=== PATIENT | male | born 1970 | race Asian ===

== ENCOUNTER 2020-02-07 14:40 | Inpatient (IN) | payer OTHER ==
[2020-02-07] MEDS ORDERED: SODIUM CHLORIDE 2,722 ML IV ONE (15:02)
[2020-02-07] MEDS ORDERED: ACETAMINOPHEN 1000 MG/100 ML VIAL (NON FORMULARY) IVPB ONE (15:05)
[2020-02-07] MEDS ORDERED: DEXAMETHASONE SOD PHOSPHATE 10 MG/1 ML VIAL IVPUSH ONE (15:38)
[2020-02-07 15:56] LABS: VENOUS PCO2 29.3 mmHg (38-52); VENOUS PH 7.543 (7.310-7.410)
[2020-02-07 15:57] LABS: BASO % 0.2 % (0-2.0); HEMATOCRIT 38.8 % (35.4-49); HEMOGLOBIN 13.3 GM/dL (11.7-16.9); LYMPH % 8.3 % (8-40); MCH 29.8 pg (25.7-33.7); MCHC 34.3 g/dl (32.0-35.9); MEAN CELL VOLUME 86.8 fl (80-96); MEAN PLT VOLUME 8.5 fl (7.5-11.1); MONO % 8.8 % (3.8-10.2); NEUT % 82.7 % (42.8-82.8); PLATELET COUNT 196 K/MM3 (134-434); RBC 4.47 M/mm3 (4.00-5.60); RDW 13.2 % (11.9-15.9); WHITE BLOOD COUNT 9.3 K/mm3 (4.0-10.0)
[2020-02-07] MEDS ORDERED: DEXAMETHASONE SOD PHOSPHATE 4 MG/1 ML VIAL ONE (16:08)
[2020-02-07 16:11] LABS: INR 1.2 (0.83-1.09); PROTHROMBIN TIME (PATIENT) 14.7 SEC (9.7-13.0)
[2020-02-07 16:13] LABS: ACTIVATED PTT 35.5 SECONDS (25.2-36.5)
[2020-02-07 16:25] LABS: CHLORIDE 95 mmol/L (98-107); SODIUM 133 mmol/L (136-145)
[2020-02-07 16:27] LABS: ALBUMIN 3.2 g/dl (3.4-5.0); CALCIUM 8.1 mg/dL (8.5-10.1)
[2020-02-07 16:28] LABS: CO2 27 mmol/L (21-32); GLUCOSE,RANDOM 118 mg/dL (74-106)
[2020-02-07 16:31] LABS: CREATININE 0.8 mg/dL (0.55-1.3); LDH 360 U/L (87-246); SGOT/AST 71 U/L (15-37); SGPT/ALT 70 U/L (13-61)
[2020-02-07 16:32] LABS: BILIRUBIN,TOTAL 0.5 mg/dL (0.2-1); TOT PROT 7.1 g/dl (6.4-8.2)
[2020-02-07 16:33] LABS: ALK PHOS 45 U/L (45-117)
[2020-02-07 16:43] LABS: ANION GAP 12 MMOL/L (8-16)
[2020-02-07 16:46] LABS: POTASSIUM 2.9 mmol/L (3.5-5.1)
[2020-02-07] MEDS ORDERED: POTASSIUM CHLORIDE TABS 20 MEQ TABLET.ER (FP) PO ONE ×2 (16:47→16:57)
[2020-02-07] MEDS ORDERED: POTASSIUM CHLORIDE ORAL LIQUID 20 MEQ/15 ML PO ONE (17:21)
[2020-02-07] MEDS ORDERED: POTASSIUM CHLORIDE 20 MEQ PREMIX IVPB 100 ML IVPB ONE (17:22)
[2020-02-07] MEDS: KCL 10 MEQ IVPB 10 MEQ/100 ML INFUS.BAG IVPB SCH ×2 (17:50→19:33)
[2020-02-07] MEDS ORDERED: KCL 10 MEQ IVPB 10 MEQ/100 ML INFUS.BAG IVPB ONE ×2 (17:51→19:14)
[2020-02-07 19:10] LABS: URINE APPEARANCE CLEAR; URINE BILIRUBIN NEGATIVE (NEGATIVE); URINE COLOR YELLOW; URINE GLUCOSE (UA) NEGATIVE (NEGATIVE); URINE KETONE TRACE (NEGATIVE); URINE LEUK ESTERASE NEGATIVE (NEGATIVE); URINE NITRITE NEGATIVE (NEGATIVE); URINE PROTEIN TRACE (NEGATIVE); URINE UROBILINOGEN 0.2 mg/dL (0.2-1.0)
[2020-02-07 21:08] LABS: VENOUS BASE EXCESS 1.7 mmol/L (-2-2); VENOUS O2 SATURATION 73.8 % (70-80); VENOUS PCO2 41.5 mmHg (38-52); VENOUS PH 7.421 (7.310-7.410)
[2020-02-07] MEDS: ASCORBIC ACID 500 MG TABLET (FP) PO SCH (22:44)
[2020-02-07] MEDS: FAMOTIDINE 20 MG/50 ML IVPB 20 MG/50 ML MG IVPB SCH (22:44)
[2020-02-07] MEDS: ACETAMINOPHEN 325 MG TABLET (FP) PO PRN (23:01)
[2020-02-08 02:38] VITALS: BMI 31.8
[2020-02-08 08:33] LABS: BASO % 0.1 % (0-2.0); HEMATOCRIT 38.6 % (35.4-49); HEMOGLOBIN 13.1 GM/dL (11.7-16.9); LYMPH % 9.5 % (8-40); MCH 30.1 pg (25.7-33.7); MEAN CELL VOLUME 88.7 fl (80-96); MEAN PLT VOLUME 8.6 fl (7.5-11.1); MONO % 7.2 % (3.8-10.2); NEUT % 83.2 % (42.8-82.8); PLATELET COUNT 209 K/MM3 (134-434); RBC 4.35 M/mm3 (4.00-5.60); RDW 13.3 % (11.9-15.9); WHITE BLOOD COUNT 9.4 K/mm3 (4.0-10.0)
[2020-02-08 08:53] LABS: POTASSIUM 3.3 mmol/L (3.5-5.1)
[2020-02-08 08:57] LABS: BLOOD UREA NITROGEN 7.8 mg/dL (7-18); CALCIUM 7.8 mg/dL (8.5-10.1)
[2020-02-08 08:58] LABS: MAGNESIUM 2.3 mg/dL (1.8-2.4)
[2020-02-08 09:01] LABS: CREATININE 0.6 mg/dL (0.55-1.3); PHOSPHOROUS 2.2 mg/dL (2.5-4.9)
[2020-02-08] MEDS: ENOXAPARIN NA (PORCINE) 40 MG/0.4 ML DISP.SYRIN SQ SCH (09:23)
[2020-02-08] MEDS: TAMSULOSIN HCL 0.4 MG CAP PO SCH (09:23)
[2020-02-08] MEDS: FINASTERIDE 5 MG TABLET (FP) PO SCH (09:24)
[2020-02-08] MEDS: LOSARTAN POTASSIUM 50 MG TABLET PO SCH (09:24)
[2020-02-08] MEDS: ASCORBIC ACID 500 MG TABLET (FP) PO SCH ×2 (09:24→22:00)
[2020-02-08] MEDS: ZINC SULFATE 220 MG CAPSULE (FP) PO SCH (09:24)
[2020-02-08] MEDS: amLODIPine BESYLATE 10 MG TABLET (FP) PO SCH ×2 (09:24→09:50)
[2020-02-08] MEDS: DEXAMETHASONE SOD PHOSPHATE 4 MG/1 ML VIAL IVPUSH SCH (09:24)
[2020-02-08] MEDS: CHOLECALCIFEROL (VIT D3) 1,000 UNIT (25 MCG) TABLET PO SCH (09:24)
[2020-02-08] MEDS: FAMOTIDINE 20 MG/50 ML IVPB 20 MG/50 ML MG IVPB SCH (09:24)
[2020-02-08] MEDS ORDERED: HYDROCHLOROTHIAZIDE 25 MG TABLET (FP) PO SCH (10:00)
[2020-02-08] MEDS ORDERED: POTASSIUM CHLORIDE TABS 20 MEQ TABLET.ER (FP) PO ONE (10:30)
[2020-02-08] MEDS: ACETAMINOPHEN 325 MG TABLET (FP) PO PRN (14:18)
[2020-02-08] MEDS: GABAPENTIN 300 MG CAPSULE PO SCH (22:00)
[2020-02-08] MEDS: ATORVASTATIN CA 10 MG TABLET (FP) PO SCH (22:00)
[2020-02-09] MEDS ORDERED: amLODIPine BESYLATE 10 MG TABLET (FP) PO ONE (00:29)
[2020-02-09 07:01] LABS: HEMATOCRIT 37.4 % (35.4-49); HEMOGLOBIN 12.4 GM/dL (11.7-16.9); MCH 29.6 pg (25.7-33.7); MCHC 33.1 g/dl (32.0-35.9); MEAN CELL VOLUME 89.5 fl (80-96); PLATELET COUNT 246 K/MM3 (134-434); RBC 4.18 M/mm3 (4.00-5.60); RDW 13.7 % (11.9-15.9); WHITE BLOOD COUNT 15.1 K/mm3 (4.0-10.0)
[2020-02-09 07:18] LABS: POTASSIUM 3.4 mmol/L (3.5-5.1)
[2020-02-09 07:22] LABS: ALBUMIN 2.7 g/dl (3.4-5.0); BLOOD UREA NITROGEN 10.6 mg/dL (7-18); MAGNESIUM 2.3 mg/dL (1.8-2.4)
[2020-02-09 07:25] LABS: CREATININE 0.6 mg/dL (0.55-1.3); PHOSPHOROUS 3.1 mg/dL (2.5-4.9)
[2020-02-09 07:26] LABS: BILIRUBIN,TOTAL 0.3 mg/dL (0.2-1); TOT PROT 6.5 g/dl (6.4-8.2)
[2020-02-09] MEDS ORDERED: POTASSIUM CHLORIDE TABS 20 MEQ TABLET.ER (FP) PO ONE ×3 (08:24→12:34)
[2020-02-09 10:11] LABS: ERYTHROCYTE SEDIMENTATION RATE 72 mm/hr (0-20)
[2020-02-09] MEDS: CHOLECALCIFEROL (VIT D3) 1,000 UNIT (25 MCG) TABLET PO SCH (10:46)
[2020-02-09] MEDS: ZINC SULFATE 220 MG CAPSULE (FP) PO SCH (10:46)
[2020-02-09] MEDS: ASCORBIC ACID 500 MG TABLET (FP) PO SCH ×3 (10:46→21:07)
[2020-02-09] MEDS: TAMSULOSIN HCL 0.4 MG CAP PO SCH (10:46)
[2020-02-09] MEDS: FAMOTIDINE 20 MG TABLET PO SCH (10:46)
[2020-02-09] MEDS: FINASTERIDE 5 MG TABLET (FP) PO SCH (10:47)
[2020-02-09] MEDS: ENOXAPARIN NA (PORCINE) 40 MG/0.4 ML DISP.SYRIN SQ SCH (10:47)
[2020-02-09] MEDS: LOSARTAN POTASSIUM 50 MG TABLET PO SCH (10:47)
[2020-02-09] MEDS: DEXAMETHASONE SOD PHOSPHATE 4 MG/1 ML VIAL IVPUSH SCH (10:55)
[2020-02-09] MEDS ORDERED: LACTATED RINGERS SOLUTION 1,000 ML/1,000 ML INFUS.BAG IV SCH (13:45)
[2020-02-09] MEDS: LACTATED RINGERS SOLUTION 1,000 ML/1,000 ML INFUS.BAG IV SCH (17:05)
[2020-02-09] MEDS: amLODIPine BESYLATE 10 MG TABLET (FP) PO SCH ×2 (20:58→21:07)
[2020-02-09] MEDS: ATORVASTATIN CA 10 MG TABLET (FP) PO SCH ×2 (20:58→21:07)
[2020-02-09] MEDS: GABAPENTIN 300 MG CAPSULE PO SCH ×2 (20:58→21:07)
[2020-02-09] MEDS ORDERED: PT OWN MED DRAWER 7, Y5N ONE (23:10)
[2020-02-10] MEDS: VANCOMYCIN 250 MG/5 ML ORAL SOLUTION PO SCH ×5 (00:06→23:12)
[2020-02-10] MEDS: LACTATED RINGERS SOLUTION 1,000 ML/1,000 ML INFUS.BAG IV SCH ×3 (01:20→22:08)
[2020-02-10 07:52] LABS: BASO % 0.2 % (0-2.0); HEMATOCRIT 37.2 % (35.4-49); HEMOGLOBIN 12.8 GM/dL (11.7-16.9); LYMPH % 10.2 % (8-40); MCH 30.2 pg (25.7-33.7); MCHC 34.3 g/dl (32.0-35.9); MEAN CELL VOLUME 87.9 fl (80-96); MEAN PLT VOLUME 8.5 fl (7.5-11.1); MONO % 14.4 % (3.8-10.2); NEUT % 75.2 % (42.8-82.8); PLATELET COUNT 295 K/MM3 (134-434); RBC 4.23 M/mm3 (4.00-5.60); RDW 13.2 % (11.9-15.9); WHITE BLOOD COUNT 10.8 K/mm3 (4.0-10.0)
[2020-02-10 08:08] LABS: POTASSIUM 3.5 mmol/L (3.5-5.1)
[2020-02-10 08:25] LABS: ALBUMIN 2.6 g/dl (3.4-5.0); BLOOD UREA NITROGEN 10.2 mg/dL (7-18); CALCIUM 7.9 mg/dL (8.5-10.1); MAGNESIUM 2.2 mg/dL (1.8-2.4)
[2020-02-10 08:28] LABS: CREATININE 0.5 mg/dL (0.55-1.3); PHOSPHOROUS 3.5 mg/dL (2.5-4.9)
[2020-02-10 08:29] LABS: BILIRUBIN,TOTAL 0.9 mg/dL (0.2-1); TOT PROT 6.2 g/dl (6.4-8.2)
[2020-02-10] MEDS: ZINC SULFATE 220 MG CAPSULE (FP) PO SCH (10:14)
[2020-02-10] MEDS: LOSARTAN POTASSIUM 50 MG TABLET PO SCH (10:14)
[2020-02-10] MEDS: ENOXAPARIN NA (PORCINE) 40 MG/0.4 ML DISP.SYRIN SQ SCH (10:14)
[2020-02-10] MEDS: FINASTERIDE 5 MG TABLET (FP) PO SCH (10:14)
[2020-02-10] MEDS: FAMOTIDINE 20 MG TABLET PO SCH (10:14)
[2020-02-10] MEDS: ASCORBIC ACID 500 MG TABLET (FP) PO SCH ×2 (10:14→22:07)
[2020-02-10] MEDS: CHOLECALCIFEROL (VIT D3) 1,000 UNIT (25 MCG) TABLET PO SCH (10:14)
[2020-02-10] MEDS: TAMSULOSIN HCL 0.4 MG CAP PO SCH (10:15)
[2020-02-10 10:17] LABS: ANISOCYTOSIS 0; MACROCYTOSIS 0; PLATELET ESTIMATE NORMAL
[2020-02-10] MEDS ORDERED: POTASSIUM CHLORIDE TABS 20 MEQ TABLET.ER (FP) PO ONE (12:00)
[2020-02-10] MEDS: ATORVASTATIN CA 10 MG TABLET (FP) PO SCH (22:07)
[2020-02-10] MEDS: amLODIPine BESYLATE 10 MG TABLET (FP) PO SCH (22:07)
[2020-02-10] MEDS: GABAPENTIN 300 MG CAPSULE PO SCH (22:07)
[2020-02-11] MEDS: DEXAMETHASONE SOD PHOSPHATE 4 MG/1 ML VIAL IVPUSH SCH ×2 (00:23→10:33)
[2020-02-11] MEDS: VANCOMYCIN 250 MG/5 ML ORAL SOLUTION PO SCH ×3 (06:00→17:11)
[2020-02-11 07:37] LABS: BASO % 0.2 % (0-2.0); HEMATOCRIT 40.4 % (35.4-49); LYMPH % 10.1 % (8-40); MCH 30.4 pg (25.7-33.7); MCHC 34.7 g/dl (32.0-35.9); MEAN CELL VOLUME 87.5 fl (80-96); MEAN PLT VOLUME 8.3 fl (7.5-11.1); MONO % 7.4 % (3.8-10.2); NEUT % 82.3 % (42.8-82.8); PLATELET COUNT 370 K/MM3 (134-434); RBC 4.62 M/mm3 (4.00-5.60); RDW 13.3 % (11.9-15.9); WHITE BLOOD COUNT 8.8 K/mm3 (4.0-10.0)
[2020-02-11] MEDS: TAMSULOSIN HCL 0.4 MG CAP PO SCH (07:48)
[2020-02-11 07:52] LABS: POTASSIUM 4.6 mmol/L (3.5-5.1)
[2020-02-11 08:03] LABS: CALCIUM 8.3 mg/dL (8.5-10.1)
[2020-02-11 08:04] LABS: BLOOD UREA NITROGEN 8.7 mg/dL (7-18); MAGNESIUM 2.1 mg/dL (1.8-2.4)
[2020-02-11 08:07] LABS: CREATININE 0.5 mg/dL (0.55-1.3); PHOSPHOROUS 3.2 mg/dL (2.5-4.9)
[2020-02-11 08:08] LABS: BILIRUBIN,TOTAL 0.8 mg/dL (0.2-1); TOT PROT 7.1 g/dl (6.4-8.2)
[2020-02-11 08:23] LABS: ERYTHROCYTE SEDIMENTATION RATE 66 mm/hr (0-20)
[2020-02-11] MEDS: LACTATED RINGERS SOLUTION 1,000 ML/1,000 ML INFUS.BAG IV SCH ×2 (10:30→17:11)
[2020-02-11] MEDS: ZINC SULFATE 220 MG CAPSULE (FP) PO SCH (10:31)
[2020-02-11] MEDS: CHOLECALCIFEROL (VIT D3) 1,000 UNIT (25 MCG) TABLET PO SCH (10:31)
[2020-02-11] MEDS: FINASTERIDE 5 MG TABLET (FP) PO SCH (10:32)
[2020-02-11] MEDS: LOSARTAN POTASSIUM 50 MG TABLET PO SCH (10:32)
[2020-02-11] MEDS: FAMOTIDINE 20 MG TABLET PO SCH (10:32)
[2020-02-11] MEDS: ASCORBIC ACID 500 MG TABLET (FP) PO SCH ×2 (10:32→21:54)
[2020-02-11] MEDS: ENOXAPARIN NA (PORCINE) 40 MG/0.4 ML DISP.SYRIN SQ SCH (10:33)
[2020-02-11] MEDS: amLODIPine BESYLATE 10 MG TABLET (FP) PO SCH (21:54)
[2020-02-11] MEDS: GABAPENTIN 300 MG CAPSULE PO SCH (21:54)
[2020-02-11] MEDS: ATORVASTATIN CA 10 MG TABLET (FP) PO SCH (21:54)
[2020-02-12] MEDS: VANCOMYCIN 250 MG/5 ML ORAL SOLUTION PO SCH ×4 (01:38→18:21)
[2020-02-12 07:03] LABS: HEMATOCRIT 37.3 % (35.4-49); HEMOGLOBIN 12.8 GM/dL (11.7-16.9); LYMPH % 10.9 % (8-40); MCHC 34.2 g/dl (32.0-35.9); MEAN CELL VOLUME 87.6 fl (80-96); MEAN PLT VOLUME 8.5 fl (7.5-11.1); NEUT % 76.1 % (42.8-82.8); PLATELET COUNT 394 K/MM3 (134-434); RBC 4.26 M/mm3 (4.00-5.60); RDW 13.1 % (11.9-15.9); WHITE BLOOD COUNT 11.6 K/mm3 (4.0-10.0)
[2020-02-12 07:17] LABS: POTASSIUM 3.8 mmol/L (3.5-5.1)
[2020-02-12 07:25] LABS: ALBUMIN 2.7 g/dl (3.4-5.0); BLOOD UREA NITROGEN 11.8 mg/dL (7-18); MAGNESIUM 2.1 mg/dL (1.8-2.4)
[2020-02-12 07:27] LABS: TOT PROT 6.4 g/dl (6.4-8.2)
[2020-02-12 07:28] LABS: CREATININE 0.6 mg/dL (0.55-1.3)
[2020-02-12 07:30] LABS: BILIRUBIN,TOTAL 0.6 mg/dL (0.2-1)
[2020-02-12 09:15] LABS: ANISOCYTOSIS 0; MACROCYTOSIS 0; PLATELET ESTIMATE NORMAL
[2020-02-12] MEDS: TAMSULOSIN HCL 0.4 MG CAP PO SCH (10:28)
[2020-02-12] MEDS: ZINC SULFATE 220 MG CAPSULE (FP) PO SCH (10:28)
[2020-02-12] MEDS: CHOLECALCIFEROL (VIT D3) 1,000 UNIT (25 MCG) TABLET PO SCH (10:28)
[2020-02-12] MEDS: ASCORBIC ACID 500 MG TABLET (FP) PO SCH ×2 (10:28→21:36)
[2020-02-12] MEDS: DEXAMETHASONE SOD PHOSPHATE 4 MG/1 ML VIAL IVPUSH SCH (10:29)
[2020-02-12] MEDS: LOSARTAN POTASSIUM 50 MG TABLET PO SCH (10:29)
[2020-02-12] MEDS: FAMOTIDINE 20 MG TABLET PO SCH (10:29)
[2020-02-12] MEDS: FINASTERIDE 5 MG TABLET (FP) PO SCH (10:29)
[2020-02-12] MEDS: ENOXAPARIN NA (PORCINE) 40 MG/0.4 ML DISP.SYRIN SQ SCH (10:30)
[2020-02-12] MEDS: amLODIPine BESYLATE 10 MG TABLET (FP) PO SCH (21:36)
[2020-02-12] MEDS: ATORVASTATIN CA 10 MG TABLET (FP) PO SCH (21:36)
[2020-02-12] MEDS: GABAPENTIN 300 MG CAPSULE PO SCH (21:36)
[2020-02-13] MEDS: VANCOMYCIN 250 MG/5 ML ORAL SOLUTION PO SCH ×3 (00:06→12:48)
[2020-02-13 07:15] LABS: BASO % 0.6 % (0-2.0); EOS % 0.1 % (0-4.5); HEMATOCRIT 38.6 % (35.4-49); LYMPH % 12.6 % (8-40); MCH 29.7 pg (25.7-33.7); MCHC 33.7 g/dl (32.0-35.9); MEAN CELL VOLUME 88.4 fl (80-96); MEAN PLT VOLUME 8.1 fl (7.5-11.1); MONO % 11.5 % (3.8-10.2); NEUT % 75.2 % (42.8-82.8); PLATELET COUNT 446 K/MM3 (134-434); RBC 4.37 M/mm3 (4.00-5.60); RDW 13.4 % (11.9-15.9); WHITE BLOOD COUNT 15.4 K/mm3 (4.0-10.0)
[2020-02-13] MEDS: CHOLECALCIFEROL (VIT D3) 1,000 UNIT (25 MCG) TABLET PO SCH (09:54)
[2020-02-13] MEDS: LOSARTAN POTASSIUM 50 MG TABLET PO SCH (09:54)
[2020-02-13] MEDS: TAMSULOSIN HCL 0.4 MG CAP PO SCH (09:54)
[2020-02-13] MEDS: ASCORBIC ACID 500 MG TABLET (FP) PO SCH (09:54)
[2020-02-13] MEDS: ZINC SULFATE 220 MG CAPSULE (FP) PO SCH (09:54)
[2020-02-13] MEDS: FAMOTIDINE 20 MG TABLET PO SCH (09:55)
[2020-02-13] MEDS: FINASTERIDE 5 MG TABLET (FP) PO SCH (09:55)
[2020-02-13] MEDS: DEXAMETHASONE SOD PHOSPHATE 4 MG/1 ML VIAL IVPUSH SCH (09:55)
[2020-02-13] MEDS: ENOXAPARIN NA (PORCINE) 40 MG/0.4 ML DISP.SYRIN SQ SCH (09:55)
[2020-02-13 10:07] LABS: CK-MM 100 % (97-100)
[2020-02-13 10:45] LABS: ANISOCYTOSIS 0; MACROCYTOSIS 0; PLATELET ESTIMATE INCREASED
[2020-02-13 13:44] VITALS: BP 126/65; PULSE 96; TEMP 98.2
== END 2020-02-13 17:49 | disposition home or self-care (01) | DRG 177 ==
LOC: JER 14:40 → JERBED 18:49 → J7W 20:52
PROVIDERS: ADMIT Hospitalist; ATTEND Internal Medicine
DX: U07.1 COVID-19 (principal); J96.01 Acute respiratory failure with hypoxia; J12.89 Other viral pneumonia; A04.72 Enterocolitis due to Clostridium difficile, not specified as recurrent; E87.6 Hypokalemia; N40.0 Benign prostatic hyperplasia without lower urinary tract symptoms; M48.02 Spinal stenosis, cervical region; I45.10 Unspecified right bundle-branch block; R00.0 Tachycardia, unspecified; E78.5 Hyperlipidemia, unspecified; E66.9 Obesity, unspecified; Z68.31 Body mass index [BMI] 31.0-31.9, adult
CPT/HCPCS: 36415; 71045-TC-FY; 71250-TC; 80048; 80053; 81003; 82550; 82552; 82553; 82728; 82803; 83605; 83615; 83735; 84100; 84484; 85025; 85027; 85379; 85610; 85651; 85730; 86140; 86769; 86850; 86900; 86901; 87040; 87086; 87324; 87449; 87804; 87899; 93005; 93010; 99291; C9803; J1100; U0003